=== PATIENT | female | born 2000 | race Caucasian/White ===

== ENCOUNTER 2021-11-29 14:54 | Emergency (ER) | payer BC, SELFPAY ==
[2021-11-29 15:17] VITALS: BP 115/58; PULSE 91; RESP 20; TEMP 35.9; O2SAT 99
--- NOTE | 2021-11-29 15:49 | ED.EAR ---
HPI - Ear Problem General Chief complaint: Ear Stated complaint: ear pain Time Seen by Provider: 11/29/21 15:51 History of Present Illness HPI Narrative: Annie Flores is a 21 yo female with R ear pain. . Chronic right ear pain and had a tube placed this year for these problems. Patient has had both Debrox and antibiotic eardrops in the past and sometimes does help Related Data Home Medications Medication Instructions Recorded Confirmed bupropion HCl 300 mg 24 hr tablet, 1 tablet PO DAILY 11/29/21 11/29/21 extended release hydroxyzine pamoate 50 mg capsule 1 cap BID PRN Anxiety 11/29/21 11/29/21 phentermine 37.5 mg tablet 18.75 mg PO DAILY 11/29/21 11/29/21 sertraline 100 mg tablet 1.5 tablet DAILY 11/29/21 11/29/21 trazodone 50 mg tablet 1 tablet DAILY 11/29/21 11/29/21 Allergies Allergy/AdvReac Type Severity Reaction Status Date / Time No Known Allergies Allergy Verified 11/29/21 15:20 Review of Systems Review of Systems: CONSTITUTIONAL: Denies fever, chills, sweats. EYES: Denies visual changes, redness, discharge. ENT: Denies rhinorrhea, congestion, sore throat, right otalgia. CARDIOVASCULAR: Denies chest pain, palpitations, edema. RESPIRATORY: Denies dyspnea, wheezing, cough GASTROINTESTINAL: Denies abdominal pain, nausea, vomiting, diarrhea. GENITOURINARY: Denies dysuria, hematuria, abnormal discharge SKIN: Denies rash or itching. NEUROLOGIC: Denies numbness, or focal weakness. PSYCHIATRIC: Denies anxiety or depression. PMFSH Past Medical History Medical History (Updated 11/29/21 @ 16:02 by Shelly Byrd CNP) Ear pain, right Surgical History Surgical History History of placement of ear tubes Social History Social History Alcohol intake: never Comments At time of signature, I agree with nursing past medical, surgical, social and family history. There is no relevant family history pertinent to the presenting complaint. Exam Narrative: GENERAL: This is a well-nourished, well-developed patient, in mild distress. HEAD: normocephalic, atraumatic. EYES: PERRL. Sclera clear/white. Vision is grossly intact. EARS: External ears normal, auditory canals clear on left ,. Very painful and red with some wax along TM on right and without drainage, Hearing grossly intact. NOSE: External nose normal without nasal discharge, nares without redness, no rhinorrhea. THROAT: Mucous membranes moist, NECK: Neck supple, non-tender CARDIOVASCULAR: Regular rate and rhythm without murmurs, gallops, or rubs. RESPIRATORY: Clear to auscultation. Breath sounds equal bilaterally. No wheezes, rales, or rhonchi. GASTROINTESTINAL: Abdomen soft, non-tender, SKIN: warm, intact with no suspicious lesions or rash, good texture and turgor. NEURO: awake, alert, and oriented to person, place and time. There were no obvious focal neurologic abnormalities. Steady gait EXTREMITIES: Normal range of motion. BACK: Nontender without deformity Course Course Emergency Course: Patient here with right ear pain, has been using Debrox as well as antibiotic eardrops, has appoint with ENT in December Started on steroid eardrops and amoxicillin Level of Care: Express Care Visit Vital Signs Vital signs: Vital Signs Temperature 96.7 F L 11/29/21 15:17 Pulse Rate 91 11/29/21 15:17 Respiratory Rate 20 11/29/21 15:17 Blood Pressure 115/58 L 11/29/21 15:17 Pulse Oximetry 99 11/29/21 15:17 Oxygen Delivery Room Air 11/29/21 15:17 Temperature 96.7 F L 11/29/21 15:17 Pulse Rate 91 11/29/21 15:17 Respiratory Rate 20 11/29/21 15:17 Blood Pressure 115/58 L 11/29/21 15:17 Pulse Oximetry 99 11/29/21 15:17 Oxygen Delivery Room Air 11/29/21 15:17 Medical Decision Making Differential Diagnosis Differential Diagnosis: Otitis versus otitis externa versus eustachian tube dysfunction Vital Si
== END 2021-11-29 16:18 | disposition home or self-care (01) ==
PROVIDERS: Emergency Provider Nurse Practitioner; PCP Nurse Practitioner Family
DX: H66.004 Acute suppurative otitis media without spontaneous rupture of ear drum, recurrent, right ear (principal); F41.9 Anxiety disorder, unspecified; F32.A Depression, unspecified
CPT/HCPCS: 99213; G0463